=== PATIENT | female | born 1995 | race Caucasian/White ===

== ENCOUNTER 2017-05-26 11:42 | Emergency (ER) | payer MEDICAID ==
[2017-05-26 12:32] LABS: HCG SERUM NEGATIVE (NEGATIVE)
[2017-05-26 12:37] LABS: BASOPHILS 0.2 % (0-2); EOSINOPHILS 1.6 % (0-7); HEMATOCRIT 41.8 % (36.0-48.0); HEMOGLOBIN 14.6 g/dL (12-16); IMMATURE GRANULOCYTES 0.2 % (0-5); LYMPHOCYTES 32.2 % (15-50); MCH 30.4 pg (26.0-34.0); MCHC 34.9 g/dL (31.0-37.0); MCV 86.9 fL (80.0-100.0); MEAN PLATELET VOLUME 11.2 fL (7.4-10.4); MONOCYTES 4.4 % (2-11); NEUTROPHILS 61.4 % (40-80); PLATELET COUNT 181 10x3/uL (130-400); RBC 4.81 10x6/uL (4.00-5.40); RDW 11.9 % (11.5-14.5); WBC 4.3 10x3/uL (4.8-10.8)
[2017-05-26 14:31] LABS: APPEARANCE CLEAR (CLEAR); BILIRUBIN NEGATIVE (NEGATIVE); COLOR YELLOW (YELLOW); GLUCOSE 1000 mg/dL (NEGATIVE); KETONE NEGATIVE (NEGATIVE); LEUKOCYTE ESTERASE NEGATIVE (NEGATIVE); NITRITE NEGATIVE (NEGATIVE); PROTEIN NEGATIVE (NEGATIVE); SPECIFIC GRAVITY 1.025 (1.005-1.020); UROBILINOGEN NORMAL (NORMAL)
[2017-05-26 14:40] LABS: ALBUMIN 3.6 g/dL (3.4-5.0); ALKALINE PHOSPHATASE 95 U/L (46-116); ALT (SGPT) 20 U/L (10-68); BILIRUBIN - TOTAL 0.21 mg/dL (0.2-1.3); CALC OSMOLALITY 278 mosm/kg (275-300); CARBON DIOXIDE 27.6 mmol/L (21.0-32.0); CHLORIDE - SERUM 100 mmol/L (98-107); CREATININE - SERUM 0.7 mg/dL (0.6-1.3); POTASSIUM - SERUM 3.7 mmol/L (3.5-5.1); PROTEIN - SERUM 7.7 g/dL (6.4-8.2); SODIUM 134 mmol/L (136-145); UREA NITROGEN 12 mg/dL (7-18); eGFR NON AFRICAN AMERICAN > 90 mL/min (90-120)
[2017-05-26 14:43] LABS: GLUCOSE 302 mg/dL (74-106)
== END 2017-05-26 14:30 | disposition left against medical advice (07) ==
LOC: D.ER 11:42
PROVIDERS: Emergency Medicine
DX: N93.9 Abnormal uterine and vaginal bleeding, unspecified (principal); E11.9 Type 2 diabetes mellitus without complications; Q21.3 Tetralogy of Fallot; F17.200 Nicotine dependence, unspecified, uncomplicated

== ENCOUNTER 2018-06-08 20:11 | Inpatient (IN) | payer MEDICAID ==
[~2018-06-08] VITALS: Ht 152.4 cm; Wt 59.9 kg
[2018-06-08 21:10] VITALS: BP 121/57; BMI 25.8
[2018-06-08] MEDS ORDERED: PRENATAL COMPLE1 TAB PO (21:10)
[2018-06-09 07:12] LABS: CREATININE - URINE 86.5 mg/dL (30-125); PRO/CRE RATIO URINE 0.1 mg/g; PROTEIN - URINE 11.6 mg/dL (0.0-11.9)
[2018-06-09 09:31] VITALS: BP 113/65
[2018-06-09 11:09] VITALS: Ht 152.4 cm; Wt 59.9 kg
[2018-06-09 19:02] VITALS: BP 118/78
[2018-06-09 23:50] VITALS: BP 125/68
[2018-06-10 02:12] LABS: PROTEIN - URINE 6.5 mg/dL (0.0-11.9)
[2018-06-10 08:10] VITALS: BP 118/60
[2018-06-10 17:08] VITALS: BP 112/68
[2018-06-10 21:00] VITALS: BP 102/57
[2018-06-11 00:20] VITALS: BP 101/68
[2018-06-11 07:15] VITALS: BP 104/59
[2018-06-11 13:00] VITALS: BP 100/60
[2018-06-11 18:50] VITALS: BP 123/63
[2018-06-12 05:36] VITALS: BP 95/51
[2018-06-12 13:30] VITALS: BP 114/71
[2018-06-12] MEDS ORDERED: HUMALOG 30100 UNITS/ SC ×3 (17:07→17:10)
[2018-06-12] MEDS ORDERED: LANTUS INSULIN10 ML SC (17:11)
[2018-06-12] MEDS ORDERED: ZOFRAN4 MG PO (17:12)
[2018-06-12] MEDS ORDERED: FERROUS SULFAT325 MG PO (17:13)
[2018-06-12] MEDS ORDERED: BUTALB-APAP-CA1 EACH PO (17:14)
== END 2018-06-12 17:30 | disposition home or self-care (01) | DRG 781 ==
LOC: D.LD 20:11 → D.WS 20:11
PROVIDERS: Obstetrics & Gynecology
DX: O24.111 Pre-existing type 2 diabetes mellitus, in pregnancy, first trimester (principal); O12.11 Gestational proteinuria, first trimester; E11.65 Type 2 diabetes mellitus with hyperglycemia; Z3A.09 9 weeks gestation of pregnancy; E11.649 Type 2 diabetes mellitus with hypoglycemia without coma; Z79.4 Long term (current) use of insulin; R51 Headache; O99.211 Obesity complicating pregnancy, first trimester

== ENCOUNTER → 2018-11-19 12:01 | Outpatient (CLI) | payer MEDICAID ==
[2018-06-09 11:09] VITALS: BMI 25.7
[~2018-11-19 12:01] MED LIST: BUTALB-APAP-CA1 EACH PO; FERROUS SULFAT325 MG PO; HUMALOG 30100 UNITS/ SC; LANTUS INSULIN10 ML SC; PRENATAL COMPLE1 TAB PO; ZOFRAN4 MG PO
== END | disposition home or self-care (01) ==
LOC: D.LDO 12:01
DX: O24.319 Unspecified pre-existing diabetes mellitus in pregnancy, unspecified trimester (principal); Z3A.00 Weeks of gestation of pregnancy not specified

== ENCOUNTER → 2018-11-30 13:20 | Outpatient (CLI) | payer MEDICAID ==
[2018-06-09 11:09] VITALS: BMI 25.7
== END | disposition home or self-care (01) ==
LOC: D.LDO 13:20
DX: O24.913 Unspecified diabetes mellitus in pregnancy, third trimester (principal); Z3A.34 34 weeks gestation of pregnancy

== ENCOUNTER → 2018-12-04 13:18 | Outpatient (CLI) | payer MEDICAID ==
[2018-06-09 11:09] VITALS: BMI 25.7
== END | disposition home or self-care (01) ==
LOC: D.US 13:18
DX: O24.913 Unspecified diabetes mellitus in pregnancy, third trimester (principal); Z3A.34 34 weeks gestation of pregnancy; Z79.4 Long term (current) use of insulin

== ENCOUNTER → 2018-12-04 18:07 | Outpatient (CLI) | payer MEDICAID ==
[2018-06-09 11:09] VITALS: BMI 25.7
== END | disposition home or self-care (01) ==
LOC: D.LDO 18:07
DX: O26.899 Other specified pregnancy related conditions, unspecified trimester (principal); Z3A.00 Weeks of gestation of pregnancy not specified

== ENCOUNTER → 2018-12-15 05:56 | Outpatient (CLI) | payer MEDICAID ==
[2018-06-09 11:09] VITALS: BMI 25.7
[~2018-12-15 05:56] MED LIST changes: +HUMALOG 30100 UNITS/; +LANTUS INSULIN10 ML
== END | disposition home or self-care (01) ==
LOC: D.LDO 05:56
PROVIDERS: ATTEND Obstetrics & Gynecology
DX: O26.899 Other specified pregnancy related conditions, unspecified trimester (principal); Z3A.00 Weeks of gestation of pregnancy not specified

== ENCOUNTER → 2018-12-18 13:03 | Outpatient (CLI) | payer MEDICAID ==
[2018-06-09 11:09] VITALS: BMI 25.7
== END | disposition home or self-care (01) ==
LOC: D.LDO 13:03
PROVIDERS: ATTEND Obstetrics & Gynecology
DX: O24.113 Pre-existing type 2 diabetes mellitus, in pregnancy, third trimester (principal); E11.9 Type 2 diabetes mellitus without complications; Z3A.36 36 weeks gestation of pregnancy

== ENCOUNTER 2018-12-24 11:55 | Inpatient (IN) | payer MEDICAID ==
[~2018-12-24] VITALS: Ht 152.4 cm; Wt 78.5 kg
[2018-12-24 12:20] LABS: UDS - AMPHET NEGATIVE QUAL (NEGATIVE); UDS - BARB NEGATIVE QUAL (NEGATIVE); UDS - BENZO NEGATIVE QUAL (NEGATIVE); UDS - COCAINE NEGATIVE QUAL (NEGATIVE); UDS - OPIATE NEGATIVE QUAL (NEGATIVE); UDS - PCP NEGATIVE QUAL (NEGATIVE); UDS - THC NEGATIVE QUAL (NEGATIVE)
[2018-12-24 13:03] LABS: COLOR YELLOW (YELLOW)
[2018-12-24 13:04] LABS: APPEARANCE CLEAR (CLEAR); BILIRUBIN NEGATIVE (NEGATIVE); GLUCOSE 50 mg/dL (NEGATIVE); KETONE NEGATIVE (NEGATIVE); NITRITE NEGATIVE (NEGATIVE); PROTEIN NEGATIVE (NEGATIVE); SPECIFIC GRAVITY 1.015 (1.005-1.020); UROBILINOGEN NORMAL (NORMAL)
[2018-12-24 13:41] VITALS: BP 124/77; Ht 152.4 cm; Wt 78.5 kg
[2018-12-24 14:02] LABS: HEMATOCRIT 34.5 % (36.0-48.0); MCH 31.5 pg (26.0-34.0); MCHC 34.8 g/dL (31.0-37.0); MCV 90.6 fL (80.0-100.0); MEAN PLATELET VOLUME 11.7 fL (7.4-10.4); RBC 3.81 10x6/uL (4.00-5.40); RDW 12.9 % (11.5-14.5); WBC 7.7 10x3/uL (4.8-10.8)
--- NOTE | 2018-12-25 02:35 | NUR ---
PT AMBULATORY TO ROOM 1278-A, NAD NOTED, RESP EVEN AND UNLABORED, ROOM ORIENTATION COMPLETED. CALL LIGHT IN EASY REACH, BED IN LOW POSITION, BED BRAKES LOCKED, SIDE RAILS UP X2. PT PROVIDED DIET LEMON [place] PER REQUEST, NO OTHER NEEDS VOICED AT THIS TIME. CONTINUE TO MONITOR.
--- NOTE | 2018-12-25 03:34 | NUR ---
ROUNDS COMPLETED, PT RESTING WITH EYES CLOSED, RIGHT LATERAL POSITION, HOB ELEVATED 20 DEGREES, SIDE RAILS UP X2, BED IN LOW POSITION, BED BRAKES LOCKED, CALL LIGHT IN EASY REACH, SIGNIFICANT OTHER ALSO RESTING WITH EYES CLOSED ON COUCH IN ROOM, NAD NOTED. CONTINUE TO MONITOR.
[2018-12-25 06:22] LABS: BASOPHILS 0 % (0-2); EOSINOPHILS 0.1 % (0-7); HEMATOCRIT 31.7 % (36.0-48.0); IMMATURE GRANULOCYTES 0.1 % (0-5); LYMPHOCYTES 15.8 % (15-50); MCH 31.2 pg (26.0-34.0); MCHC 34.7 g/dL (31.0-37.0); MCV 89.8 fL (80.0-100.0); MEAN PLATELET VOLUME 10.7 fL (7.4-10.4); PLATELET COUNT 126 10x3/uL (130-400); RBC 3.53 10x6/uL (4.00-5.40); RDW 12.9 % (11.5-14.5)
--- NOTE | 2018-12-25 06:35 | NUR ---
PT USING CALL LIGHT TO STATE "I FEEL LIKE MY BLOOD SUGAR IS LOW, CAN YOU CHECK IT AND BRING ME SOME CRACKERS?" FSBS 60 ON CHECK, ENCOURAGED PT TO EAT MARGARET CRACKERS AND PEANUT BUTTER. PT STATES "THE CRACKERS WILL BRING IT UP ENOUGHT FOR ME." PAGED DR MALAGON WITH FSBS REPORT.
--- NOTE | 2018-12-25 06:38 | NUR ---
CALL BACK PER DR MALAGON, STATES NO ORDERS AT THIS TIME SINCE CRACKERS AND PEANUT BUTTER PROVIDED.
--- NOTE | 2018-12-25 06:55 | NUR ---
REPORT GIVEN TO ONCOMING SHIFT STAFF.
--- NOTE | 2018-12-25 07:16 | NUR ---
SCHEDULED IBUPROFEN ADMINISTERED TO PT WITH SIPS WATER. PT REPORTS FEELING BETTER AFTER EATING CRACKERS.
[2018-12-25 07:24] VITALS: BP 98/57
--- NOTE | 2018-12-25 07:24 | NUR ---
THIS RN TO ROOM FOR SHIFT ASSESSMENT. PT LYIN IN BED ON RIGHT SIDE. PT ALERTS THIS RN ENTERS ROOM. PT AAOx3. PT RATES PAIN 2/10, DENIES NEED FOR INTERVENTION. POC DISCUSSED, SHOWER DISCUSSED. PT STATES SHE WANTS TO SHOWER THIS RN. PT INSTRUCTED TO CALL OUT FOUR SLIDE MACHINE SETTER LIGHT WHEN READY TO SHOWER SO IV CAN BE WRAPPED AND BED LINENS CHANGED. PT VERBALIZES UNDERSTANDING. PT PROVIDED WITH TOWELS AND SOAPS FOR SHOWER. PT DENIES CONCERNS WITH HEAVY LOCHIA THROUGHOUT THE NIGHT. PT INSTRUCTED ON WHAT TO REPORT, UNDERSTANDING VERBALIZED. PT DENIES NEEDS AT THIS TIME. FANS DELIVERS BREAKFAST TRAY, PT STATES SHE WANTS TO REST AT THIS TIME. SEE FLOWSHEET FOR VS AND SHIFT ASSESSMENT. SRUx2, CL IN REACH. WILL CONT TO MONITOR.
--- NOTE | 2018-12-25 09:13 | NUR ---
Pastora Botello [birth year] S: Patient states since she delivered baby has only latched for 5 minutes at 2:00 and 5:00. She hasn't been able to get baby to latch long because she will sleep or fuss. She has two other children and she pumped with both of them because she was unable to get them to latch. Denies pain with latching. Asked how does she know if is latched correctly. O: Patient in bed holding talking with nursery nurse. Asked how can I help with and congratulated on delivery. Asked if any pain or discomfort with ? Informed patient takes time, practice, and patience in the beginning. Explained breastmilk composition, benefits of skin to skin, positions, normal feeding patterns for an exclusively breastfed , how to determine if baby is latched correctly, feeding cues, tips on waking a sleeping baby, and how benefits of practicing responsive feeding. Explained how to verify is getting enough milk by diaper count outputs. Please ask for help as needed. Asked if any other questions or concerns. Offered to help with latching infant for feeding. Explained how to hold infant. was placed in cradle position on the left breast at 9:28am. Infant did take a few minutes to self latch. Explained this is normal behavior, is learning how to breastfeed also. Infant had round cheeks, mouth 140 degrees, sucking in a rocking motion, and appears content at the breast. Observed infant sucking and swallowing. Encouraged to offer infant the breast with every feeding to help with establishing your milk supply. latched on the left breast from 9:28-9:43. immediately latched on the right breast at 9:43 in laid back position. Infant had round cheeks, mouth 140 degrees, sucking in a rocking motion, and appears content at the breast. Observed sucking and swallowing. Praised for and encouraged. Please let nursery staff know as needed with help with . A: Patient learning to breastfeed with baby. P: Continue to support during hospital visit. Hayley Serrano, CLC
--- NOTE | 2018-12-25 09:58 | NUR ---
PT CALLS OUT WIRE BASKET MAKER LIGHT STATING SHE NEEDS TO TAKE HER INSULIN SHE IS ABOUT TO EAT BREAKFAST. PT INFORMED THAT BREAKFAST DOSE WAS HELD FOR BS OF 60 AND PT SLEEPING. PT INSISTS SHE NEEDS TO TAKE INSULIN NOW. DR MALAGON PHONED TO GIVE REPORT, STATES SHE IS IN APPOINTMENT AND WILL CALL BACK.
--- NOTE | 2018-12-25 10:10 | NUR ---
DR MALAGON PHONES UNIT, REPORT GIVEN REGARDING AM DOSE OF INSULIN HELD BY PM SHIFT PER BS OF 60 AND PT SLEEPING, NOT AWAKE TO EAT BREAKFAST. ORDER RECEIVED TO ADMIN BREAKFAST DOSE NOW WAS SCHEDULED THIS AM DUE TO PT NOW READY TO EAT BREAKFAST. ORDER RECIEVED TO TIME LUNCH DOSE ACCORDINGLY WITH MEAL. WILL PROCEED ORDERED.
--- NOTE | 2018-12-25 10:20 | NUR ---
PT SELF ADMIN INSULIN ORDERED SQ TO LEFT ABD, SEE EMAR FOR DOC. PT SETS UP BREAKFAST TRAY TO EAT, DENIES NEEDS AT THIS TIME. WILL ADMIN SCHEDULED TYLENOL. SIG OTHER AT BEDSIDE. SRUx2, CL IN REACH. WILL CONT TO MONITOR.
--- NOTE | 2018-12-25 12:47 | NUR ---
PT CALLS OUT FOR FSBS AND INSULIN DOSE FOR LUNCH SHE IS SETTING UP LUNCH TRAY TO EAT NOW. FSBS NOTED TO BE 82. WILL ADMIN INSULIN ORDERED.
[2018-12-25 13:14] VITALS: BP 114/67
--- NOTE | 2018-12-25 13:14 | NUR ---
INSULIN ADMIN PER PT SCHEDULED, SEE EMAR FOR DOC. VITALS OBTAINED AND NOTED TO BE STABLE, SEE FLOWSHEET FOR DOC. PT DENIES NEEDS AT THIS TIME, SETTING UP TRAY TO EAT LUNCH. WILL CONT TO MONITOR. SRUx2, CL IN REACH.
--- NOTE | 2018-12-25 14:30 | NUR ---
THIS RN TO ROOM TO CHECK BS FOR NURSERY STAFF. PT SITTING UP IN BED VISTING WITH FAMILY MEMBER, INFORMED OF BABY'S BS AND ENCOURAGED TO PROCEED WITH FEEDING INFANT. UNDERSTANDING VERBALIZED. PT STATES SHE WILL FEED BABY FORMULA NOW BUT WOULD LIKE BREASTPUMP TO PUMP ALSO. PT PROVIDED WITH BOTTLE AND BREASTPUMP, DENIES FURTHER NEEDS AT THIS TIME. SRUx2, CL IN REACH.
--- NOTE | 2018-12-25 15:23 | NUR ---
PT FSBS NOTED TO BE 147. PT STATES "YEAH PROBABLY BECAUSE I ATE THAT HAMBURGER AT LUNCH." PT C/O MILD PERINEAL PAIN WITH MOVEMENT. PT ADMIN SCHEDULED MOTRIN ORDERED, SEE EMAR FOR DOC. PT DENIES NEEDS. WILL CONT TO MONITOR.
--- NOTE | 2018-12-25 18:05 | NUR ---
pt requests insulin as food brought in by family.
[2018-12-25 19:55] VITALS: BP 108/63
--- NOTE | 2018-12-25 19:55 | NUR ---
PT AAOX3, SITTING UPRIGHT IN BED, RESP EVEN AND UNLABORED, LUNGS CTAB, HEART RRR, ABD SOFT AND NONTENDER, FUNDUS FIRM AT U/2 AND MIDLINE, LOCHIA RUBRA LIGHT [place], DENIES CLOTS, VOIDING WITHOUT DIFFICULTY, TUCKER FREELY, NEGATIVE NAVEEN'S SIGN B LE, PEDAL PULSES STRONG AND EQUAL, REVIEWED PLAN O CARE, PT STATES UNDERSTANDING, CALL LIGHT IN EASY REACH, BED IN LOW POSITION, BED BRAKES LOCKED, CONTINUE TO MONITOR.
--- NOTE | 2018-12-25 20:30 | NUR ---
PT SITTING IN BED, NAD NOTED, RESP EVEN AND UNLABORED, SIGNIFICANT OTHER TO ROOM. CALL LIGHT IN EASY REACH, CONTINUE TO MONITOR.
--- NOTE | 2018-12-25 21:05 | NUR ---
FSBS 120 PRIOR TO SCHEDULED HS LANTUS 14 UNITS SQ TO LOW ABD. PT C/O PERINEAL DISCOMFORT RATED A 3-4 ON PAIN SCALE, DERMAPLAST AND TUCKS PADS PROVIDED WITH INSTRUCTIONS ON USE, WILL CONTINUE SCHEDULED ACETAMINOPHEN/IBUPROFEN SCHEDULED PER MD ORDERS. IN ARMS, REFUSES SHOWER OFFERED AT THIS TIME. CONTINUE TO MONITOR.
--- NOTE | 2018-12-25 22:31 | NUR ---
SCHEDULED PAIN MEDS GIVEN FOR PT C/O PERINEAL ACHES AND ABD CRAMPING, ENCOURAGED PT TO GET OOB AND SHOWER, SHOWER SUPPLIES TO BR, IN ROLLING CRIB RESTING NAD NOTED, HS SNACK PROVIDED PER REQUEST. NO OTHER NEEDS VOICED AT THIS TIME, CONTINUE TO MONITOR.
--- NOTE | 2018-12-25 23:35 | NUR ---
PT SHOWERED AND POSITIONS SELF IN BED, PT STATES "I FEEL BETTER RIGHT NOW." DIET LEMON [place] PROVIDED UPON REQUEST, DENIES OTHER NEEDS AT THIS TIME. SIGNIFICANT OTHER AT BS. CALL LIGHT IN EASY REACH, CONTINUE TO MONITOR.
--- NOTE | 2018-12-26 01:30 | NUR ---
ROUNDS COMPLETED, DENIES NEEDS OR CONCERNS, NAD NOTED. CONTINUE TO MONITOR.
--- NOTE | 2018-12-26 02:33 | NUR ---
ROUNDS COMPLETED, PT RESTING WITH EYES CLOSED, RESP EVEN AND UNLABORED, NAD NOTED. CALL LIGHT IN EASY REACH, SIGNIFICANT OTHER AWAKE AND IN ROOM WITH PT. NO NEEDS VOICED.
--- NOTE | 2018-12-26 04:39 | NUR ---
ROUNDS COMPLETED, SCHEDULED MED GIVEN ORDERED WITH SIPS WATER, PT ROUSES TO VERBAL STIMULI THEN EYES CLOSE IMMEDIATELY, RESP EVEN AND UNLABORED, NAD NOTED. NO PHYSICAL SIGNS OR SYMPTOMS PAIN OBSERVED, CONTINUE TO MONITOR.
--- NOTE | 2018-12-26 05:47 | NUR ---
PT USING CALL LIGHT, STATES IBUPROFEN AND ACETOMINOPHEN "ARE JUST NOT WORKING AND I CAN'T TAKE IT ANYMORE." PT REQUESTS ADDITIONAL MED, EXPLAINED NO ORDERS AVAILABLE AT THIS TIME AND WOULD CONTACT APARTMENT COMMUNITY MANAGER AND DR MALAGON IF NECESSARY. PT STATES UNDERSTANDING. DR SANTIAGO PAGED WITH IMMEDIATE CALLBACK, STATES THIS RN TO CALL DR MALAGON FOR ANY NARCOTIC ORDERS. PAGED DR MALAGON, NO CALL BACK AT THIS TIME, WILL RE-PAGE.
--- NOTE | 2018-12-26 06:00 | NUR ---
PHONED DR MALAGON VIA CELL PHONE, REVIEWED PT COMPLAINT AND TYPE OF PAIN PT REPORTING, REVIEWED PT STATUS, FUNDUS FIRM AT U/2 AND MIDLINE, LOCHIA RUBRA LIGHT USUALLY TO MODERATE AT TIMES, NO CLOTS, VSS, RESP EVEN AND UNLABORED, STATES OKAY TO GIVE PT ONE TIME DOSE PERCOCET 5/325 PO NOW ONLY. ORDER RECEIVED, NOTED, AND VERIFIED VIA TORB, WITNESSED PER Bernard BARBER RN.
--- NOTE | 2018-12-26 06:05 | NUR ---
PT GIVEN ONE TIME DOSE PERCOCET 5/325 FOR C/O PAIN TO LOW ABD ESPECIALLY ON RIGHT SIDE PT REPORTS ON ADMINISTRATION. PT CONTINUES TO HAVE EVEN AND UNLABORED RESPIRATIONS WITHOUT PHYSICAL S/SX PAIN OBSERVED BY THIS RN WHILE AT BS. CALL LIGHT IN EASY REACH, CONTINUE TO MONITOR.
[2018-12-26 07:25] VITALS: BP 108/63
--- NOTE | 2018-12-26 07:32 | NUR ---
MOTRIN 800 MG GIVEN PO ORDERED SCHEDULED. PT INSTRUCTED ON MED. VERBALIZES UNDERSTANDING.
--- NOTE | 2018-12-26 07:40 | NUR ---
BREAKFAST TRAY SERVED. PT STATES READY FOR AM INSULIN. HUMALOG 8 UNITS GIVEN SQ PER PT TO RUQ OF ABDOMEN. PT STATES WILL BEGIN TO EAT NOW.
--- NOTE | 2018-12-26 08:04 | NUR ---
RECEIVED PT SITTING IN SEMIFOWLER'S POSITION IN BED. HRRR WITHOUT AUDIBLE MURMUR. BBS CLEAR. BS X 4. ABDOMEN SOFT/NON-DISTENDED. FUNDUS FIRM AT U/2. RUBRA LOCHIA SMALL AMT. PERINEUM WITHOUT EDEMA. NEG HOMANS' SIGN. PPP. NO EDEMA NOTED TO BLE. PT C/O PAIN TO PERINEUM OF "4" ON 0-10 PAIN SCALE. FSBS 62. PT DENIES NEEDS OR C/O. SR UPX 2. CALL LIGHT IN REACH.
--- NOTE | 2018-12-26 08:08 | NUR ---
PT SITTING UP IN BED. STATES FINISHED WITH BREAKFAST. REQUESTS AND RECEIVES DIET LEMON[place] SODA.
[2018-12-26] MEDS ORDERED: IBUPROFEN800 MG PO (08:30)
[2018-12-26] MEDS ORDERED: LANTUS INSULIN10 ML SC (10:38)
[2018-12-26] MEDS ORDERED: HUMALOG 30100 UNITS/ SC (10:39)
--- NOTE | 2018-12-26 10:50 | NUR ---
DISCHARGE INSTRUCTIONS GIVEN TO PT. PT VERBALIZES UNDERSTANDING OF ALL INSTRUCTIONS. COPIES GIVEN TO PT. PT AWAITS 'S DISCHARGE.
--- NOTE | 2018-12-26 12:24 | NUR ---
PT AMBULATORY IN ROOM. PREPARING FOR DISCHARGE.
--- NOTE | 2018-12-26 13:10 | NUR ---
PT READY FOR DISCHARGE. DISCHARGED IN STABLE CONDITION WITH VIA WHEELCHAIR PER Akash CHERRY RN TO PRIVATE VEHICLE.
== END 2018-12-26 13:10 | disposition home or self-care (01) | DRG 805 ==
LOC: D.LDO 11:55 → D.LD 12:32 → D.LDO 12:32 → D.LD 12:51 → D.LDO 13:28 → D.LD 13:29
PROVIDERS: ADMIT Obstetrics & Gynecology; ATTEND Obstetrics & Gynecology
PROC: 10E0XZZ Delivery of Products of Conception, External Approach (ICD-10-PCS; principal; 2018-12-24)
PROC: 0HQ9XZZ Repair Perineum Skin, External Approach (ICD-10-PCS; 2018-12-24)
PROC: 0U7C7ZZ Dilation of Cervix, Via Natural or Artificial Opening (ICD-10-PCS; 2018-12-24)
DX: O99.02 Anemia complicating childbirth (principal); O24.12 Pre-existing type 2 diabetes mellitus, in childbirth; Z37.0 Single live birth; E11.9 Type 2 diabetes mellitus without complications; Z3A.37 37 weeks gestation of pregnancy; O26.03 Excessive weight gain in pregnancy, third trimester; O34.211 Maternal care for low transverse scar from previous cesarean delivery; O70.0 First degree perineal laceration during delivery; O69.81X0 Labor and delivery complicated by cord around neck, without compression, not applicable or unspecified

== ENCOUNTER 2020-07-03 18:36 | Emergency (ER) | payer OTHER ==
[~2020-07-03] VITALS: Ht 152.4 cm; Wt 53.6 kg
[~2020-07-03 18:36] MED LIST changes: +IBUPROFEN800 MG PO
[2020-07-03 18:59] VITALS: BP 117/76; Ht 152.4 cm; Wt 53.6 kg
[2020-07-03] MEDS ORDERED: GLUCOTROL 5 MG T5 MG PO (19:04)
[2020-07-03] MEDS ORDERED: BASAGLAR K100 UNIT/1 SC (19:05)
[2020-07-03] MEDS ORDERED: CLEOCIN HCL300 MG PO (19:59)
[2020-07-03 20:06] LABS: BASOPHILS 0.3 % (0-2); EOSINOPHILS 1.2 % (0-7); HEMOGLOBIN 13.6 g/dL (12-16); IMMATURE GRANULOCYTES 0.2 % (0-5); LYMPHOCYTES 21.4 % (15-50); MCH 29.8 pg (26.0-34.0); MCV 87.5 fL (80.0-100.0); MEAN PLATELET VOLUME 10.4 fL (7.4-10.4); MONOCYTES 2.8 % (2-11); NEUTROPHILS 74.1 % (40-80); RBC 4.57 10x6/uL (4.00-5.40); RDW 13.7 % (11.5-14.5)
[2020-07-03 20:12] LABS: PLATELET COUNT 226 10x3/uL (130-400)
[2020-07-03 20:17] LABS: CALC OSMOLALITY 284 mosm/kg (275-300); CALCIUM 8.9 mg/dL (8.5-10.1); CARBON DIOXIDE 24.4 mmol/L (21.0-32.0); CHLORIDE - SERUM 101 mmol/L (98-107); CREATININE - SERUM 0.8 mg/dL (0.6-1.3); GLUCOSE 325 mg/dL (74-106); POTASSIUM - SERUM 3.6 mmol/L (3.5-5.1); SODIUM 135 mmol/L (136-145); UREA NITROGEN 18 mg/dL (7-18); eGFR NON AFRICAN AMERICAN > 90 mL/min (90-120)
[2020-07-03 20:18] LABS: BILIRUBIN NEGATIVE (NEGATIVE); KETONE NEGATIVE (NEGATIVE); NITRITE NEGATIVE (NEGATIVE); UROBILINOGEN NORMAL mg/dL (< 2); WHITE CELLS - URINE 0-5 HPF (0-4)
[2020-07-03 20:19] LABS: BACTERIA FEW HPF (NONE SEEN); EPITHELIAL CELLS 0-5 /hpf (0-5)
[2020-07-03 20:24] LABS: ALBUMIN 3.7 g/dL (3.4-5.0); ALKALINE PHOSPHATASE 95 U/L (30-120); ALT (SGPT) 22 U/L (10-68); BILIRUBIN - TOTAL 0.13 mg/dL (0.2-1.3); PROTEIN - SERUM 7.6 g/dL (6.4-8.2)
[2020-07-03] MEDS ORDERED: IBUPROFEN800 MG PO (20:58)
== END 2020-07-03 21:00 | disposition home or self-care (01) ==
LOC: D.ER 18:36
PROVIDERS: Family Medicine
DX: L02.818 Cutaneous abscess of other sites (principal)